=== PATIENT | female | born 1965 | race Two or more races ===

== ENCOUNTER → 2023-06-08 | Outpatient (CLI) | payer MEDICAID ==
[2023-06-08 14:59] LABS: Urine Bacteria FEW /hpf (None Seen); Urine Blood Negative /uL (Negative); Urine Clarity Clear (Clear); Urine Color Yellow (Yellow); Urine Hyaline Cast MOD /lpf (0 - 2); Urine Mucus FEW (None Seen); Urine Protein, UAD TRACE (Negative); Urine Specific Gravity 1.026 (1.001-1.035); Urine WBC 2 /hpf (0 - 5); Urine pH 5.5 (5.0-8.0)
== END | disposition home or self-care (01) ==
LOC: LAB 14:41
PROVIDERS: ATTEND Obstetrics & Gynecology
DX: N39.0 Urinary tract infection, site not specified (principal)
CPT/HCPCS: 81001; 87086

== ENCOUNTER 2024-12-25 08:18 | Day surgery (SDC) | payer MEDICAID ==
[2024-12-20 13:08] LABS: Urine Bacteria None Seen /hpf (None Seen)
[2024-12-20 13:21] LABS: Hematocrit 43.7 % (36.0-46.0); Hemoglobin 15.4 g/dL (12.2-16.2); Mean Corpuscular Hemoglobin 32.2 pg (28.0-32.0); Mean Corpuscular Hgb Conc. 35.1 g/dL (32.0-36.0); Mean Corpuscular Volume 91.6 fL (80.0-100.0); Platelet Count (auto) 281 10^3/uL (140-450); Red Blood Cells 4.77 10^6/uL (4.0-5.20); Red Cell Distribution Width 13.1 % (11.8-14.3); White Blood Cell 6.3 10^3/uL (4.4-10.8)
[2024-12-20 13:23] LABS: Band Neutrophils % (manual) 0; Basophils % (manual) 0 (0.0-2.0); Blast Cells 0; Metamyelocytes % 0; Myelocytes % 0; Promyelocytes % 0; Reactive Lymphocytes 0
[2024-12-20 13:32] LABS: INR 0.99 (0.9-1.15); Partial Thromboplastin Time 29.3 SEC (24.5-34.5); Prothrombin Time 10.5 sec (9.3-11.8)
[2024-12-20 13:40] LABS: Urine Blood Negative /uL (Negative); Urine Clarity Turbid (Clear); Urine Color Yellow (Yellow); Urine Hyaline Cast MOD /lpf (0 - 2); Urine Mucus FEW (None Seen); Urine Protein, UAD 1+ (Negative); Urine Specific Gravity 1.022 (1.001-1.035); Urine Squamous Epithelial Cell MOD /hpf (<5); Urine Urobilinogen 2 mg/dL (Negative); Urine WBC 12 /HPF (0-5); Urine pH 6.5 (5.0-9.0)
[2024-12-20 13:43] LABS: Alanine Aminotransferase 28 U/L (7-40); Albumin 4.5 g/dL (3.2-4.8); Anion Gap 9 (5-15); Aspartate Aminotransferase 25 U/L (13-40); BUN/Creatinine Ratio 7.4 (10.0-20.0); Calcium 9.8 mg/dL (8.7-10.4); Carbon Dioxide 26 mmol/L (20-31); Chloride 107 mmol/L (98-107); Glucose 85 mg/dL (74-106); Potassium 4.3 mmol/L (3.5-5.1); Sodium 142 mmol/L (136-145); Total Protein 6.8 g/dL (5.7-8.2)
[2024-12-20 13:44] LABS: Bilirubin, Total 0.5 mg/dL (0.2-1.0); Eosinophils % (manual) 13 (0-7); Lymphocytes % (manual) 22 (10.0-50.0); Monocytes % (manual) 3 (0-12); Platelet Estimate Adequate
[2024-12-20 13:46] LABS: Alkaline Phosphatase 123 U/L (46-116); Blood Urea Nitrogen 9 mg/dL (9-23)
[~2024-12-25] VITALS: Ht 165.1 cm; Wt 76.7 kg
[~2024-12-25 08:18] MED LIST: ALBU2TAB11 PO; ALPR0.255 GT; AMLO1TAB22 PO; ASPI1TAB20 PO; ATOR10TA52 PO; BACL5TAB2 PO; FLUT50AE5 IN; NITR0.4S29 SL; OMEP20TA PO; PERCOT PO; PROP80CA40 PO; RIME75TA PO; TIRZ2.5I2 SC; VORT1TAB PO
[2024-12-25] MEDS ORDERED: EPINEPHrine HCL 1 MG/1 ML AMP ONE ×2 (10:32→10:35)
[2024-12-25] MEDS ORDERED: ROPIVACAINE 0.5% (5MG/ML) 20ML AMPULE IJ ONE (10:44)
[2024-12-25] MEDS ORDERED: SUCCINYLCHOLINE CHLORIDE 20 MG/ML 10ML VIAL IV ONE (10:44)
[2024-12-25] MEDS ORDERED: fentaNYL CITRATE 100 MCG/2 ML VL ONE ×2 (10:48→10:49)
[2024-12-25] MEDS ORDERED: PROPOFOL 10 MG/ML 20 ML IV ONE (10:48)
[2024-12-25] MEDS: CLINDAMYCIN 600MG IV 50 ML IV ONE (11:20)
[2024-12-25] MEDS ORDERED: ONDANSETRON HCL 4 MG/2 ML VIAL ONE (11:37)
[2024-12-25] MEDS ORDERED: DexAMETHasone SOD PHOS 10MG/1ML VIAL INJ ONE (11:37)
[2024-12-25] MEDS ORDERED: ePHEDrine SULFATE 50 MG/ML AMP ONE (11:51)
[2024-12-25] MEDS ORDERED: ROCURONIUM 10MG/ML 10ML VIAL IV ONE (13:05)
[2024-12-25] MEDS ORDERED: SUGAMMADEX 200mg/2ml Vial (100MG/ML) IV ONE (13:05)
[2024-12-25 13:15] VITALS: PULSE 80; RESP 18; TEMP 98.1; O2SAT 93
[2024-12-25 13:18] VITALS: PULSE 77; RESP 23; O2SAT 97
[2024-12-25 13:30] VITALS: PULSE 73; RESP 10; O2SAT 98
[2024-12-25] MEDS ORDERED: ONDANSETRON HCL 4 MG/2 ML VIAL IV ONE (13:30)
[2024-12-25] MEDS ORDERED: MEPERIDINE HCL (25 MG/ML) 1ML VIAL IV PRN (13:30)
[2024-12-25] MEDS ORDERED: ACETAMINOPHEN IV 1000 MG/100ML (10MG/ML) IV PRN (13:30)
[2024-12-25] MEDS ORDERED: HYDROmorphone HCL 2 MG/ML VL/or syr IV PRN (13:30)
[2024-12-25 14:25] VITALS: BP 138/76; PULSE 78; RESP 19; O2SAT 95
--- NOTE | 2024-12-25 18:02 | DVHOP ---
DATE OF SURGERY: 12/25/2024 PREOPERATIVE DIAGNOSIS: Left shoulder rotator cuff tear. 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 PROCEDURE PERFORMED: Left shoulder arthroscopy with chondroplasty and microfracture of the humeral head, rotator cuff repair and subacromial decompression. ANESTHESIA: General with interscalene block. COMPLICATIONS: None. BLOOD LOSS: Minimal. IMPLANTS USED: Arthrex FiberTak 2.6 x1 and SwiveLock anchor x1. INDICATIONS FOR PROCEDURE: The patient presented to the clinic with a history of chronic shoulder pain. She has a history of proximal humerus nailing several years ago. Clinical and radiological evaluation demonstrated near complete rotator cuff tear. Some chondromalacia was also noted. Nonoperative and operative management options were discussed. Surgery in the form of shoulder arthroscopy with rotator cuff repair was discussed. Benefits, risks, and treatment alternatives were discussed. Specific complications of the surgery such as neurovascular injury, infection, arthrofibrosis, loss of limb or life were discussed. The patient decided to proceed with the surgical option. DESCRIPTION OF PROCEDURE: The patient was identified in the preoperative holding area and the surgical site was marked, consent was verified. She was brought into the operating room and placed supine on the operating table. General anesthesia was administered. Intravenous antibiotics were given. The extremity was prepped and draped in the usual sterile manner. A timeout was called out to confirm the identity of the patient, the nature of surgery, the site of surgery, the availability of implants and x-rays and allergies to medications. Next, a standard posterior portal was established. A 30-degree scope was inserted. A standard anterior portal was established. A probe was inserted and the findings were as follows. * Grade 4 chondromalacia humeral head, small area of approximately 1 cm in diameter. * Grade 2-3 chondromalacia glenoid, small area as well. * degenerative labral tears. * Near complete rotator cuff tendon tear. * Intact subscapularis. * Undersurface tearing of the biceps tendon. * One loose body that was successfully retrieved. The biceps tendon tear was explored. This was a small undersurface tear. This was debrided. The chondromalacia was also debrided with the help of a shaver and a wand. Next, a PowerPick shaver attachment was used to drill 2 holes through the humeral head cartilage damage. Access was difficult due to the location and the arm had to be extended and externally rotated. A wand was also used to complete the chondroplasty. The subacromial space was entered. The tear was marked with a PDS suture. This was a high-grade near complete intra-articular tear that was noted right next to the entry point of the humerus nail. The humerus nail site was satisfactory with no implant prominence and deeply buried implant with some fibrocartilage on top. Subacromial decompression was carried out. There was significant bursitis noted. Thorough subacromial decompression was carried out for visualization. The bursa was removed anteriorly and posteriorly as well. The rotator cuff tear was noted. This was a small crescent sized tear. I repaired it with the medial and lateral row anchor. A FiberTak 2.6 mm medial row anchor was used. The rotator cuff tendon was debrided. Footprint was also debrided. All the sutures were now passed through the rotator cuff tendon. These were tied on the medial row. This was brought into the lateral row self-punching SwiveLock anchor and inserted into the greater tuberosity for a watertight closure. Excellent fixation was noted. Acromioplasty was carried out with the help of a bur. A 6-7 mm of acromial edge was removed. Adequate hemostasis was achieved. Irrigation was given. A 2-0 nylon was used for the closure. DISPOSITION: Good, the patient was extubated and taken to the recovery without any complications. PLAN: The plan is to have the patient stay in the immobilizer at all times and follow up in 1-2 weeks. We will start physical therapy at that time. MD YONNY Zabala/MICAH/ANA TID: [id number] RECEIPT: [id number] [facility]ITALJammie
[2024-12-26] MEDS ORDERED: HYDR-4902 PO ×2 (11:23)
[2024-12-26] MEDS ORDERED: CEPH500C PO (11:26)
== END 2024-12-25 14:40 | disposition home or self-care (01) ==
LOC: SUR 08:18
PROVIDERS: ATTEND Orthopaedic Surgery Sports Medicine
DX: M75.112 Incomplete rotator cuff tear or rupture of left shoulder, not specified as traumatic (principal); M94.212 Chondromalacia, left shoulder; M24.012 Loose body in left shoulder; M75.52 Bursitis of left shoulder; S46.212A Strain of muscle, fascia and tendon of other parts of biceps, left arm, initial encounter; G89.18 Other acute postprocedural pain; N18.9 Chronic kidney disease, unspecified; M19.90 Unspecified osteoarthritis, unspecified site; G43.909 Migraine, unspecified, not intractable, without status migrainosus; Z79.01 Long term (current) use of anticoagulants; Z79.82 Long term (current) use of aspirin; Z79.899 Other long term (current) drug therapy; Z87.11 Personal history of peptic ulcer disease; Z86.2 Personal history of diseases of the blood and blood-forming organs and certain disorders involving the immune mechanism; Z90.89 Acquired absence of other organs; Z95.0 Presence of cardiac pacemaker; Z98.1 Arthrodesis status; Z98.891 History of uterine scar from previous surgery; Z98.890 Other specified postprocedural states; Z87.891 Personal history of nicotine dependence; Z88.0 Allergy status to penicillin; Z88.8 Allergy status to other drugs, medicaments and biological substances; X58.XXXA Exposure to other specified factors, initial encounter; Y93.89 Activity, other specified; Y92.89 Other specified places as the place of occurrence of the external cause; Y99.8 Other external cause status
CPT/HCPCS: 29826; 29827; 36415; 64415; 80053; 81001; 85007; 85027; 85610; 85730; C1713; J0171; J0330; J1100; J2405; J2704; J2795; J3010; J3490